=== PATIENT | female | born 1955 | race Caucasian/White ===

== ENCOUNTER 2016-08-22 09:11 | Inpatient (IN) | payer BC, OTHER ==
[~2016-08-22] VITALS: Ht 165.1 cm; Wt 58.2 kg
[2016-08-22] VITALS (18 sets, daily range): BP systolic 104–142; BP diastolic 61–84; PULSE 79–108; TEMP 36.6–36.7; O2SAT 85–100; Ht 165.1 cm; Wt 58.2 kg
[2016-08-22] MEDS ORDERED: SODIUM CHLORIDE 0.9% 1000ML 1,000 ML IV STA (09:32)
[2016-08-22] MEDS ORDERED: MULT-506 PO (09:41)
[2016-08-22] MEDS ORDERED: MULT-190 PO (09:41)
[2016-08-22] MEDS ORDERED: CALC-51 PO (09:41)
[2016-08-22] MEDS ORDERED: OCTREOTIDE IV BOLUS & DRIP IV STA (09:48)
--- NOTE | 2016-08-22 09:51 | EMERGENCY ROOM VISIT NOTE ---
History Report prepared by [place]: James Burns Under the Supervision of: Dr. Vinny Mendoza D.O. First contact with patient: 09:32 Chief Complaint: RECTAL BLEEDING Stated Complaint: GI BLEED Nursing Triage Summary: having 2 episodes in the past 72 hrs of vomiting dark red blood. now having dark stools x's 5. feeling dizzy and lightheaded. patient reports taking a multi vitamin History of Present Illness The patient is a 60 year old female who presents to the Emergency Room with complaints of persistent rectal bleeding beginning two days prior to arrival. She associates resolved lightheadedness and two episodes of hematemesis over the past three days with today's symptoms. The patient notes her stool is coffee ground with a foul odor, and she has had five episodes. She denies experiencing these symptoms in the past. The patient denies being on any medications. She notes that she takes 2 tablets of 200 mg ibuprofen every day to help her sleep. The patient states she has been a heavy drinker for the past 6-7 years. She notes that she has cut her alcohol intake from 4-5 cocktails a day to 6 ounces over the past week. The patient states it is her stress reliever and that she feels she can quit at any time. CAGE positive X 3. The patient denies chest pain. 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 Review of Systems See above for pertinent positives & negatives. A total of 10 systems reviewed and were otherwise negative. Past Medical & Surgical Medical Problems: (1) No pertinent past medical history Family History Heart disease Seizures Social History Smoking Status: Current Every Day Smoker Alcohol Use: heavy Marital Status: Current/Historical Medications Scheduled Calcium Carbonate-Vitamin D (Calcium), 1 TAB PO DAILY Multivitamin (Multivitamin), 1 TAB PO DAILY Ocuvite Preservision (Ocuvite Preservision), 1 TAB PO DAILY Allergies Coded Allergies: Phenytoin (Verified Allergy, Mild, GENERALIZED RASH, 08/22/16) Physical Exam Vital Signs Date Time Temp Pulse Resp B/P Pulse Ox O2 Delivery O2 Flow Rate FiO2 08/22/16 10:48 97 Room Air 08/22/16 10:03 107 18 124/72 97 Room Air 08/22/16 09:37 98 Room Air 08/22/16 09:34 95 08/22/16 09:18 36.4 111 18 120/84 98 Room Air Physical Exam GENERAL: Patient is tearful, well appearing and in no acute distress. HEENT: No acute trauma, normocephalic atraumatic, mucous membranes moist, no nasal congestion, no scleral icterus. NECK: No stridor, no adenopathy, no meningismus, trachea is midline. LUNGS: No dyspnea. Clear to auscultation and equal bilaterally. No wheeze, no rhonchi. HEART: Regular rate and rhythm. No murmurs, rubs, gallops appreciated. ABDOMEN: Soft, nontender, bowel sounds positive, no masses appreciated, no peritonitis. RECTAL: Grossly guaiac positive. Melanotic stool. BACK: No midline tenderness, no CVA tenderness EXTREMITIES: Normal motion all extremities, no cyanosis, no edema. NEUROLOGIC: Alert and oriented, no acute motor or sensory deficits, no focal weakness, cranial nerves grossly intact. SKIN: No rash, no jaundice, no diaphoresis. Medical Decision & Procedures Laboratory Results 08/22/16 09:51 Red Blood Count 3.35, Mean Corpuscular Volume 100.3, Mean Corpuscular Hemoglobin 36.1, Mean Corpuscular Hemoglobin Concent 36.0, Mean Platelet Volume 9.7, Neutrophils (%) (Auto) 76.5, Lymphocytes (%) (Auto) 14.1, Monocytes (%) ( Auto) 8.1, Eosinophils (%) (Auto) 0.4, Basophils (%) (Auto) 0.6, Neutrophils # ( Auto) 10.26, Lymphocytes # (Auto) 1.90, Monocytes # (Auto) 1.09, Eosinophils # ( Auto) 0.06, Basophils # (Auto) 0.08 08/22/16 09:51 Test 08/22/16 09:51 08/22/16 10:31 08/22/16 10:34 White Blood Count 13.43 K/uL (4.8-10.8) Red Blood Count 3.35 M/uL (4.2-5.4) Hemoglobin 12.1 g/dL (12.0-16.0) Hematocrit 33.6 % (37-47) Mean Corpuscular Volume 100.3 fL (80-100) Mean Corpuscular Hemoglobin 36.1 pg (25-34) Mean Corpuscular Hemoglobin Concent 36.0 g/dl (32-36) Platelet Count 342 K/uL (130-400) Mean Platelet Volume 9.7 fL (7.4-10.4) Neutrophils (%) (Auto) 76.5 % Lymphocytes (%) (Auto) 14.1 % Monocytes (%) (Auto) 8.1 % Eosinophils (%) (Auto) 0.4 % Basophils (%) (Auto) 0.6 % Neutrophils # (Auto) 10.26 K/uL (1.4-6.5) Lymphocytes # (Auto) 1.90 K/uL (1.2-3.4) Monocytes # (Auto) 1.09 K/uL (0.11-0.59) Eosinophils # (Auto) 0.06 K/uL (0-0.5) Basophils # (Auto) 0.08 K/uL (0-0.2) RDW Standard Deviation 48.5 fL (36.4-46.3) RDW Coefficient of Variation 13.3 % (11.5-14.5) Immature Granulocyte % (Auto) 0.3 % Immature Granulocyte # (Auto) 0.04 K/uL (0.00-0.02) Prothrombin Time 10.4 SECONDS (9.0-12.0) Prothromb Time International Ratio 1.0 (0.9-1.1) Activated Partial Thromboplast Time 22.1 SECONDS (21.0-31.0) Partial Thromboplastin Ratio 0.9 Anion Gap 10.0 mmol/L (3-11) Est Creatinine Clear Calc Drug Dose 72.7 ml/min Estimated GFR () 101.1 Estimated GFR (Non- 87.2 BUN/Creatinine Ratio 66.1 (10-20) Calcium Level 8.6 mg/dl (8.5-10.1) Total Bilirubin 1.2 mg/dl (0.2-1) Direct Bilirubin 0.3 mg/dl (0-0.2) Aspartate Amino Transf (AST/SGOT) 21 U/L (15-37) Alanine Aminotransferase (ALT/SGPT) 29 U/L (12-78) Alkaline Phosphatase 77 U/L (45-117) Total Protein 6.9 gm/dl (6.4-8.2) Albumin 3.6 gm/dl (3.4-5.0) Lipase 134 U/L (73-393) Creatine Kinase MB Ratio (0-3.0) Laboratory results as reviewed by me. Medications Administered Medications (Trade) Dose Ordered Sig/Miko Route Start Time Stop Time Status Last Admin Dose Admin Sodium Chloride (Nss 1000ml) 1,000 ml @ 999 mls/hr Q1H1M STAT IV 08/22/16 09:32 08/22/16 10:32 DC 08/22/16 09:32 999 MLS/HR Pantoprazole Sodium (Protonix IV Bolus/Drip) 1 ea NOW STAT IV 08/22/16 09:47 08/22/16 09:48 DC 08/22/16 09:47 1 EA Octreotide Acetate 1 ea 1 ea NOW STAT IV 08/22/16 09:48 08/22/16 09:49 DC 08/22/16 09:48 1 EA Pantoprazole Sodium 80 mg/ Dextrose 120 ml @ 480 mls/hr ONE ONCE IV 08/22/16 10:00 08/22/16 10:14 DC 08/22/16 10:12 480 MLS/HR Pantoprazole Sodium 40 mg/ Dextrose 100 ml @ 20 mls/hr Q5H IV 08/22/16 10:15 08/22/16 15:14 08/22/16 10:12 20 MLS/HR Octreotide Acetate 100 mcg/ Syringe 10 ml @ 3 mls/min NOW ONCE IV 08/22/16 10:00 08/22/16 10:03 DC 08/22/16 10:12 3 MLS/MIN Octreotide Acetate/Sodium Chloride (Sandostatin Inj/ Nss 100ml) 105 ml @ 10 mls/hr [id number] IV 08/22/16 10:00 08/22/16 20:29 08/22/16 10:12 10 MLS/HR Morphine Sulfate (MoRPHine SULFATE INJ) 4 mg NOW STAT IV 08/22/16 10:34 08/22/16 10:36 DC 08/22/16 11:09 4 MG ECG Indication: other (melena) Rate (beats per minute): 95 Rhythm: normal sinus Findings: other (Normal axis. Prolonged QTC 505. No ST segment abnormalities.) Comparison ECG Date: 07/27/2011 Change: Prolonged QTC interval change. ED Course 0931: The patient was evaluated in room A2. A complete history and physical exam was performed. 0932: Ordered Sodium Chloride 1,000 ml @ 999 mls/hr IV. 0947: Ordered Pantoprazole Sodium 1 ea IV. 0948: Ordered Octreotide Acetate 1 ea IV. 1000: Ordered Octreotide Acetate 500 mcg/Sodium Chloride 105 ml @ 10 mls/hr IV, Octreotide Acetate 100 mcg/Syringe 10 ml @ 3 mls/min IV, Pantoprazole Sodium 80 mg/Dextrose 120 ml @ 480 mls/hr IV. 1001: I discussed the case with Jeanie Garces (Gastroenterology), and he will scope the patient when she goes to the ICU. 1007: I discussed the case with HANY Moreno (Watch Parts Inspector) at this time. 1008: I discussed the case with HANY Souza (Internal Medicine) about the patient's case, and he will follow the patient for further evaluation. 1015: Ordered Erythromycin Lactobionate 250 mg/Sodium Chloride 255 ml @ 250 mls/ hr IV, Pantoprazole Sodium 40 mg/Dextrose 100 ml @ 20 mls/hr IV. 1034: Ordered Morphine Sulfate 4 mg IV. 1045: Ordered Acetaminophen 1,000 mg/Empty Bag 100 ml @ 400 mls/hr IV. Medical Decision The differential diagnoses include but are not limited to: Etiologies such as diverticulosis, AVM, coagulopathy, colitis, inflammatory bowel disease, malignancy, Viry-Barragan tear, esophagitis, peptic ulcer disease , variceal bleed, gastritis, epistaxis, fissure, hemorrhoids, as well as others were entertained. 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 Resident's today with a 3 day history of melanotic stools, she woke up this morning and was extremely short of breath while walking the dog. She denies any chest pain or palpitations with this. She is tearful in the exam room she admits to daily alcohol use of 4 -6 Damon Nakul drinks. She reports that she does not feel like she needs alcohol rehabilitation at this time a cage exam was performed and she's positive 3. He is aware that she is engaging in high-risk alcohol behavior including hiding her alcohol consumption from friends and family. She admits to daily ibuprofen use, Advil PM at night for sleep approximately 400 mg daily. I suspect that this is most likely a peptic ulcer, she admits to hematemesis 2 and several voluminous melanotic stools. I have started a Protonix infusion as well as an octreotide infusion as with this alcohol history I cannot exclude esophageal varices, however she does not have any stigmata of varices on her abdominal exam. I have paged GI to discuss the case with him. Erythromycin for GI motility held due to QTC prolongation. Consults Time Called: 09 Consulting Physician: Jeanie Garces (Gastroenterology) Returned Call: 1000 I discussed the case with Jeanie Garces (Gastroenterology), and he will scope the patient when she goes to the ICU. Additional Consults: Time Called: 1003 Consulted Physician: HANY Moreno (Watch Parts Inspector) Returned Call: 1007 Additional Comments: I discussed the case with HANY Moreno (Watch Parts Inspector) at this time. Time Called: 1004 Consulted Physician: HANY Souza (Internal Medicine) Returned Call: 1008 Additional Comments: I discussed the case with HANY Souza (Internal Medicine) about the patient's case, and he will follow the patient for further evaluation. Impression Primary Impression: GI (gastrointestinal hemorrhage) Additional Impressions: Daily consumption of alcohol Melanotic stools Megaloblastic anemia due to alcoholism Hypokalemia Total bilirubin, elevated Prolonged QT interval Critical Care I have personally spent 35 minutes of critical care time in the direct management of this patient. This is a life/limb threatening event. This includes time spent evaluating patient, direct bedside care, chart review, placing orders, interpretation of diagnostic studies, discussion with consultants, patient, and family members, as well as other required patient management activities. This time is exclusive of all separately billable procedures, and teaching time and separate from and in addition to any other critical care service time. Patient is critically ill due to acute gastrointestinal hemorrhage. Scribe Attestation The scribe's documentation has been prepared under my direction and personally reviewed by me in its entirety. I confirm that the note above accurately reflects all work, treatment, procedures, and medical decision making performed by me. Departure Information Dispostion Being Evaluated By Hospitalist (Dr. Dyer, [facility] (Internal Medicine)) Referrals No Doctor, Assigned (PCP) Problem Qualifiers Primary Impression: GI (gastrointestinal hemorrhage) GI bleed type/associated pathology: gastrointestinal hemorrhage with hematemesis Qualified Codes: K92.0 - Hematemesis
[2016-08-22] MEDS ORDERED: OCTREOTIDE ACETATE INJ 500 MCG in NSS 100ML IV SCH (10:00)
[2016-08-22] MEDS ORDERED: PANTOprazole INJ 80 MG in DEXTROSE 5% 100ML IV ONE (10:00)
[2016-08-22] MEDS ORDERED: OCTREOTIDE ACETATE INJ 100 MCG in SYRINGE 9 ML IV ONE (10:00)
[2016-08-22 10:09] LABS: BASO % 0.6 %; BASO ABS # 0.08 K/uL (0-0.2); COMPLETE YES; EOS % 0.4 %; HEMATOCRIT 33.6 % (37-47); IG% 0.3 %; LYMPH % 14.1 %; MEAN CELL VOLUME 100.3 fL (80-100); MEAN CORPUSCULAR HEMOGLOBIN 36.1 pg (25-34); MEAN PLATELET VOLUME 9.7 fL (7.4-10.4); MONO % 8.1 %; NEUT % 76.5 %; PLATELET COUNT 342 K/uL (130-400); RED BLOOD COUNT 3.35 M/uL (4.2-5.4); WHITE BLOOD COUNT 13.43 K/uL (4.8-10.8)
[2016-08-22] MEDS ORDERED: ERYTHROMYCIN IV 250 MG in SODIUM CHLORIDE 0.9% 250ML 250 ML IV SCH (10:15)
[2016-08-22] MEDS ORDERED: PANTOprazole INJ 40 MG in DEXTROSE 5% 100ML IV SCH (10:15)
[2016-08-22 10:17] LABS: PARTIAL THROMBOPLASTIN RATIO 0.9; PROTHROMBIN TIME (PATIENT) 10.4 SECONDS (9.0-12.0)
[2016-08-22 10:24] LABS: CALCIUM 8.6 mg/dl (8.5-10.1)
[2016-08-22 10:27] LABS: BUN/CREATININE RATIO 66.1 (10-20); CREATININE 0.75 mg/dl (0.60-1.20); POTASSIUM 3.3 mmol/L (3.5-5.1)
[2016-08-22] MEDS ORDERED: MoRPHine SULFATE 4 MG/ML 1 ML CARP\\VIAL IV STA (10:34)
[2016-08-22] MEDS ORDERED: LORAZEPAM 2 MG/ML 1 ML VIAL IV PRN (10:45)
[2016-08-22] MEDS ORDERED: ACETAMINOPHEN IV 1,000 MG in EMPTY BAG 0 ML IV ONE (10:45)
[2016-08-22] MEDS ORDERED: POLYETHYLENE (MIRALAX) 17 GM PACK PO PRN (10:45)
[2016-08-22] MEDS ORDERED: ACETAMINOPHEN 325 MG TAB PO PRN (10:45)
[2016-08-22] MEDS ORDERED: ONDANSETRON INJ 2 MG/ML 2 ML VIAL IV PRN ×2 (10:45→14:00)
[2016-08-22] MEDS ORDERED: NITROGLYCERIN 0.4 MG SL PER TAB CHARGE SL PRN (10:45)
[2016-08-22] MEDS ORDERED: MAGNESIUM HYDROXIDE SUSP 30 ML UDC PO PRN (10:45)
[2016-08-22] MEDS ORDERED: ALUMINUM/MAGNESIUM/SIMETH (MAALOX MAX) 30 ML UDC PO PRN (10:45)
--- NOTE | 2016-08-22 11:14 | History and Physical ---
History & Physical Date & Time of Service: Aug 22, 2016 at 10:59 Chief Complaint: Gi Bleed Primary Care Physician: No Doctor, Assigned History of Present Illness Source: patient, family, clinic records, hospital records Patient is a pleasant 60 y/o female, with PMHx of alcohol abuse, who presented to the ED because of dark stools, lightheadedness/dizziness x3 days. According to the patient, she started to notice dark stools approximately 3 days ago. She admits to about 5 darks stools in that time frame. She denies any obvious bright red blood. However, according to father present, patient did have noticeable bleeding on her bedroom sheets. This AM she went to let her dog out and became very dizzy/lightheaded, so she called 911. Patient admits to excessive alcohol use for the past 7 years. She admits to daily NSAID use. She admits to daily tobacco use. She denies having anything like this in the past. + hematemesis. Currently, patient states she is feeling well. Patient denies any fever, chills, sweats, vision changes, CP, palpitations, edema, SOB, wheezing, cough, abdominal pain, nausea, diarrhea, urinary symptoms, numbness/tingling, weakness, muscle/joint pain, anxiety/depression, obvious active bleeding, or new skin discoloration/changes. Past Medical/Surgical History Alcohol abuse Tobacco abuse Family History Heart disease Seizures Social History Smoking Status: Current Every Day Smoker Marital Status: Housing status: lives with family Multi-Drug Resistant Organisms History of MDRO: No Allergies Coded Allergies: Phenytoin (Verified Allergy, Mild, GENERALIZED RASH, 08/22/16) Home Medications Scheduled Calcium Carbonate-Vitamin D (Calcium), 1 TAB PO DAILY Multivitamin (Multivitamin), 1 TAB PO DAILY Ocuvite Preservision (Ocuvite Preservision), 1 TAB PO DAILY Physical Exam Vital Signs Date Time Temp Pulse Resp B/P Pulse Ox O2 Delivery O2 Flow Rate FiO2 08/22/16 10:03 107 18 124/72 97 Room Air 08/22/16 09:37 98 Room Air 08/22/16 09:34 95 08/22/16 09:18 36.4 111 18 120/84 98 Room Air General Appearance: no apparent distress Head: normocephalic, atraumatic Eyes: normal inspection, PERRL ENT: hearing grossly normal Neck: supple Respiratory/Chest: lungs clear, no respiratory distress, no accessory muscle use Cardiovascular: regular rate, rhythm Abdomen/GI: normal bowel sounds, non tender, soft Back: no CVA tenderness Extremities/Musculoskelatal: no calf tenderness, no pedal edema Neurologic/Psych: alert, normal mood/affect, oriented x 3 Skin: normal color, warm/dry, no rash Diagnostics Laboratory Results Results Past 24 Hours Test 08/22/16 09:51 08/22/16 10:31 08/22/16 10:34 Range/Units White Blood Count 13.43 4.8-10.8 K/uL Red Blood Count 3.35 4.2-5.4 M/uL Hemoglobin 12.1 12.0-16.0 g/dL Hematocrit 33.6 37-47 % Mean Corpuscular Volume 100.3 80-100 fL Mean Corpuscular Hemoglobin 36.1 25-34 pg Mean Corpuscular Hemoglobin Concent 36.0 32-36 g/dl Platelet Count 342 130-400 K/uL Mean Platelet Volume 9.7 7.4-10.4 fL Neutrophils (%) (Auto) 76.5 % Lymphocytes (%) (Auto) 14.1 % Monocytes (%) (Auto) 8.1 % Eosinophils (%) (Auto) 0.4 % Basophils (%) (Auto) 0.6 % Neutrophils # (Auto) 10.26 1.4-6.5 K/uL Lymphocytes # (Auto) 1.90 1.2-3.4 K/uL Monocytes # (Auto) 1.09 0.11-0.59 K/uL Eosinophils # (Auto) 0.06 0-0.5 K/uL Basophils # (Auto) 0.08 0-0.2 K/uL RDW Standard Deviation 48.5 36.4-46.3 fL RDW Coefficient of Variation 13.3 11.5-14.5 % Immature Granulocyte % (Auto) 0.3 % Immature Granulocyte # (Auto) 0.04 0.00-0.02 K/uL Prothrombin Time 10.4 9.0-12.0 SECONDS Prothromb Time International Ratio 1.0 0.9-1.1 Activated Partial Thromboplast Time 22.1 21.0-31.0 SECONDS Partial Thromboplastin Ratio 0.9 Sodium Level 137 136-145 mmol/L Potassium Level 3.3 3.5-5.1 mmol/L Chloride Level 102 98-107 mmol/L Carbon Dioxide Level 25 21-32 mmol/L Anion Gap 10.0 3-11 mmol/L Blood Urea Nitrogen 50 7-18 mg/dl Creatinine 0.75 0.60-1.20 mg/dl Est Creatinine Clear Calc Drug Dose 72.7 ml/min Estimated GFR () 101.1 Estimated GFR (Non- 87.2 BUN/Creatinine Ratio 66.1 10-20 Random Glucose 93 70-99 mg/dl Calcium Level 8.6 8.5-10.1 mg/dl Total Bilirubin 1.2 0.2-1 mg/dl Direct Bilirubin 0.3 0-0.2 mg/dl Aspartate Amino Transf (AST/SGOT) 21 15-37 U/L Alanine Aminotransferase (ALT/SGPT) 29 12-78 U/L Alkaline Phosphatase 77 45-117 U/L Total Protein 6.9 6.4-8.2 gm/dl Albumin 3.6 3.4-5.0 gm/dl Lipase 134 73-393 U/L Creatine Kinase MB Ratio 0-3.0 EKG DANIS MELENDEZ ID:[id number] 22-AUG-2016 09:13:46 [facility] Normal sinus rhythm Minimal voltage criteria for LVH, may be normal variant Inferior infarct , age undetermined Prolonged QT Abnormal ECG When compared with ECG of 27-JUL-2011 10:50, Inferior infarct is now Present QT has lengthened 25mm/s 10mm/mV 150Hz 8.0 SP2 12SL 241 SURYA: 0 Referred by: ED Unconfirmed Vent. rate 95 BPM OK interval 144 ms QRS duration 66 ms QT/QTc 402/505 ms P-R-T axes 89 -16 75 1955 (60 yr) Female Room:A02 Loc:15 [employer]ilities And Grounds Director:MANAN Vann ind: Impression Assessment and Plan PA Physician Supervision Note: I interviewed and examined the patient. Discussed with Jessica RIZVI and agree with findings and plan as documented in the note. Any exceptions or clarifications are listed here: None Gi bleed, emergent scope no defined source for bleeding, continue close watch, gi medicine is following Alcohol abuse, watch for withdrawal, B12 folate and MVI Tobacco use: counselled for cessation Denies need for nicotine patch replete hypokalemia vitals stable, no signs of withdrawal at this time abd is soft and non tender Documented By: Leonel Dyer Level of Care Critical Care Resuscitation Status FULL RESUSCITATION VTE Prophylaxis VTE Risk Assessment Done? Y/N: Yes Risk Level: Low Given or contraindicated: T.E.D. Stockings, SCD's
[2016-08-22 11:56] LABS: MAGNESIUM 1.7 mg/dl (1.8-2.4); PHOSPHORUS 2.7 mg/dl (2.5-4.9)
--- NOTE | 2016-08-22 12:23 | Medical Consult ---
Consultation Note Date of Service Aug 22, 2016. Consultation Note Reason for consult: GIB History of Present Illness Source: patient 60 yo female with PMH sig alcohol abuse in [place] until Wed evening when she noticed some mild upper abd pain, followed by vomiting of black material. Over the next two days, she began to pass dark stools without red blood. She also had poor appetite, and progressive fatigue and weakness with minimal exertion. She had second episode of vomiting dark material last night. She presented to the ER this morning after pre-syncopal episode this morning. Denies anginal symptoms. No prior h/o GIB. + H/o heavy alcohol and tobacco. + Regular NSAID use - 2-3 tabs ibuprofen daily. On presentation to ER, she was tachycardic but normotensive, with Hgb 12 and BUN 50. She remained tachycardic after 1 liter NS. Past Medical/Surgical History Alcohol abuse Tobacco abuse Family History Heart disease Seizures Social History Smoking Status: Current Every Day Smoker Marital Status: Housing status: lives with family Multi-Drug Resistant Organisms History of MDRO: No Allergies Coded Allergies: Phenytoin (Verified Allergy, Mild, GENERALIZED RASH, 08/22/16) Home Medications Scheduled Calcium Carbonate-Vitamin D (Calcium), 1 TAB PO DAILY Multivitamin (Multivitamin), 1 TAB PO DAILY Ocuvite Preservision (Ocuvite Preservision), 1 TAB PO DAILY Physical Exam Vital Signs Date Time Temp Pulse Resp B/P Pulse Ox O2 Delivery O2 Flow Rate FiO2 08/22/16 11:13 103 18 117/73 99 Room Air 08/22/16 10:48 97 Room Air 08/22/16 10:03 107 18 124/72 97 Room Air 08/22/16 09:37 98 Room Air 08/22/16 09:34 95 08/22/16 09:18 36.4 111 18 120/84 98 Room Air General Appearance: no apparent distress Head: normocephalic, atraumatic Eyes: normal inspection, PERRL. Mucosa moist and pink ENT: hearing grossly normal Neck: supple Respiratory/Chest: lungs clear, no respiratory distress, no accessory muscle use Cardiovascular: regular rate, rhythm Abdomen/GI: normal bowel sounds, non tender, soft Back: no CVA tenderness Extremities/Musculoskelatal: no calf tenderness, no pedal edema Neurologic/Psych: alert, normal mood/affect, oriented x 3 Skin: normal color, warm/dry, no rash Rectal: Black stool Diagnostics Laboratory Results Results Past 24 Hours Test 08/22/16 09:51 08/22/16 10:31 08/22/16 10:34 Range/Units White Blood Count 13.43 4.8-10.8 K/uL Red Blood Count 3.35 4.2-5.4 M/uL Hemoglobin 12.1 12.0-16.0 g/dL Hematocrit 33.6 37-47 % Mean Corpuscular Volume 100.3 80-100 fL Mean Corpuscular Hemoglobin 36.1 25-34 pg Mean Corpuscular Hemoglobin Concent 36.0 32-36 g/dl Platelet Count 342 130-400 K/uL Mean Platelet Volume 9.7 7.4-10.4 fL Neutrophils (%) (Auto) 76.5 % Lymphocytes (%) (Auto) 14.1 % Monocytes (%) (Auto) 8.1 % Eosinophils (%) (Auto) 0.4 % Basophils (%) (Auto) 0.6 % Neutrophils # (Auto) 10.26 1.4-6.5 K/uL Lymphocytes # (Auto) 1.90 1.2-3.4 K/uL Monocytes # (Auto) 1.09 0.11-0.59 K/uL Eosinophils # (Auto) 0.06 0-0.5 K/uL Basophils # (Auto) 0.08 0-0.2 K/uL RDW Standard Deviation 48.5 36.4-46.3 fL RDW Coefficient of Variation 13.3 11.5-14.5 % Immature Granulocyte % (Auto) 0.3 % Immature Granulocyte # (Auto) 0.04 0.00-0.02 K/uL Prothrombin Time 10.4 9.0-12.0 SECONDS Prothromb Time International Ratio 1.0 0.9-1.1 Activated Partial Thromboplast Time 22.1 21.0-31.0 SECONDS Partial Thromboplastin Ratio 0.9 Sodium Level 137 136-145 mmol/L Potassium Level 3.3 3.5-5.1 mmol/L Chloride Level 102 98-107 mmol/L Carbon Dioxide Level 25 21-32 mmol/L Anion Gap 10.0 3-11 mmol/L Blood Urea Nitrogen 50 7-18 mg/dl Creatinine 0.75 0.60-1.20 mg/dl Est Creatinine Clear Calc Drug Dose 72.7 ml/min Estimated GFR () 101.1 Estimated GFR (Non- 87.2 BUN/Creatinine Ratio 66.1 10-20 Random Glucose 93 70-99 mg/dl Calcium Level 8.6 8.5-10.1 mg/dl Total Bilirubin 1.2 0.2-1 mg/dl Direct Bilirubin 0.3 0-0.2 mg/dl Aspartate Amino Transf (AST/SGOT) 21 15-37 U/L Alanine Aminotransferase (ALT/SGPT) 29 12-78 U/L Alkaline Phosphatase 77 45-117 U/L Total Protein 6.9 6.4-8.2 gm/dl Albumin 3.6 3.4-5.0 gm/dl Lipase 134 73-393 U/L Creatine Kinase MB Ratio 0-3.0 EKG DANIS MELENDEZ ID:[id number] 22-AUG-2016 09:13:46 [facility] Normal sinus rhythm Minimal voltage criteria for LVH, may be normal variant Inferior infarct , age undetermined Prolonged QT Abnormal ECG When compared with ECG of 27-JUL-2011 10:50, Inferior infarct is now Present QT has lengthened 25mm/s 10mm/mV 150Hz 8.0 SP2 12SL 241 SURYA: 0 Referred by: ED Unconfirmed Vent. rate 95 BPM LA interval 144 ms QRS duration 66 ms QT/QTc 402/505 ms P-R-T axes 89 -16 75 1955 (60 yr) Female Room:2 Loc:15 Keyboard Instrument Tuner:MANAN Vann ind: Impression Assessment and Plan NSAID use, alcohol UGIB - Suspect PUD. Doubt variceal bleed. - Volume resuscitation, urgent endoscopy today.
[2016-08-22] MEDS ORDERED: MULTI-VITAMIN INFUSION INJ 10 ML, THIAMINE HCL INJ 100 MG, FoLIC ACID INJ 1 MG in SODIU... IV ONE (12:30)
--- NOTE | 2016-08-22 13:26 | GI REPORT ---
Procedure Date: 08/22/2016 12:47 PM Procedure: Upper GI endoscopy Indications: Hematemesis, Melena Medicines: See the Anesthesia note for documentation of the administered medications Complications: No immediate complications. Estimated Blood Loss: Estimated blood loss: none. Procedure: Pre-Anesthesia Assessment: - After reviewing the risks and benefits, the patient was deemed in satisfactory condition to undergo the procedure. - ASA Grade Assessment: III - A patient with severe systemic disease. After obtaining informed consent, the endoscope was passed under direct vision. Throughout the procedure, the patient's blood pressure, pulse, and oxygen saturations were monitored continuously. The Scope was introduced through the mouth, and advanced to the proximal jejunum. The upper GI endoscopy was accomplished without difficulty. The patient tolerated the procedure well. Findings: The examined esophagus was normal. There was scant red blood in the stomach on intubation of the stomach which easily cleared with lavage. The examined duodenum was normal. The examined jejunum was normal. No source of bleeding was identified despite repeated inspection of upper GI tract. Impression: - Scant amount of red blood in stomach, although no source of bleeding identfied. Recommendation: - Discharge pt to ICU. Clear liquids. Despite unremarkable endoscopy, would continue PPI gtt. If pt has evidence of repeat bleeding, would repeat EGD. Gina Foster M.D. Gina Foster MD 08/22/2016 1:25:15 PM This report has been signed electronically. Note Initiated On: 08/22/2016 12:47 PM I attest to the content of the Intraoperative Record and orders documented therein, exceptions below
--- NOTE | 2016-08-22 13:49 | Anesthesiology Progress Note ---
Anesthesia Post Op Note Date & Time Aug 22, 2016 at 13:48 Vital Signs Pain Intensity: 0 Vital Signs Past 12 Hours Date Time Temp Pulse Resp B/P Pulse Ox O2 Delivery O2 Flow Rate FiO2 08/22/16 13:45 80 18 106/73 97 Nasal Cannula 2 08/22/16 13:35 84 18 105/72 100 Nasal Cannula 2 08/22/16 13:29 36.6 86 16 104/67 100 Nasal Cannula 2 08/22/16 12:01 104 17 129/73 100 Room Air 08/22/16 11:57 36.6 108 17 124/79 100 Room Air 08/22/16 11:13 103 18 117/73 99 Room Air 08/22/16 10:48 97 Room Air 08/22/16 10:03 107 18 124/72 97 Room Air 08/22/16 09:37 98 Room Air 08/22/16 09:34 95 08/22/16 09:18 36.4 111 18 120/84 98 Room Air Notes Mental Status: alert / awake / arousable, participated in evaluation Pt Amnestic to Procedure: Yes Nausea / Vomiting: adequately controlled Pain: adequately controlled Airway Patency, RR, SpO2: stable & adequate BP & HR: stable & adequate Hydration State: stable & adequate Anesthetic Complications: no major complications apparent
[2016-08-22] MEDS ORDERED: EpHEDrine SULFATE INJ 50 MG/ML AMP IV PRN (14:00)
[2016-08-22] MEDS ORDERED: ATROPINE SULFATE 0.1 MG/ML 5ML SYR IV PRN (14:00)
[2016-08-22] MEDS: POTASSIUM CHLR 10 MEQ / WTR 10 MEQ in PREMIXED WATER 100 ML IV SCH ×4 (15:23→18:41)
[2016-08-22] MEDS: MAGNESIUM SULFATE 1GM / D5W 1 GM in PREMIXED IN D5W 100 ML IV SCH ×2 (15:24→16:51)
[2016-08-22] MEDS ORDERED: MAGNESIUM SULFATE 1GM / D5W 1 GM in PREMIXED IN D5W 100 ML IV ONE (16:15)
[2016-08-22 16:22] LABS: HEMATOCRIT 28.5 % (37-47)
[2016-08-22] MEDS: PANTOprazole INJ 40 MG in DEXTROSE 5% 100ML IV SCH ×2 (16:51→22:42)
[2016-08-22] MEDS: NSS + 20MEQ KCL 1000ML 1,000 ML IV SCH (18:03)
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
[2016-08-22 22:12] LABS: HEMATOCRIT 25.7 % (37-47)
[2016-08-22] MEDS: LORAZEPAM 2 MG/ML 1 ML VIAL IV PRN (23:04)
[2016-08-23] VITALS (10 sets, daily range): BP systolic 106–143; BP diastolic 45–81; PULSE 70–93; TEMP 36.5–36.8; O2SAT 96–99
[2016-08-23] MEDS: PANTOprazole INJ 40 MG in DEXTROSE 5% 100ML IV SCH ×4 (02:48→19:30)
[2016-08-23] MEDS: NSS + 20MEQ KCL 1000ML 1,000 ML IV SCH (02:49)
[2016-08-23 05:59] LABS: HEMATOCRIT 23.9 % (37-47); MEAN CELL VOLUME 102.1 fL (80-100); MEAN CORPUSCULAR HEMOGLOBIN 35.9 pg (25-34); MEAN CORPUSCULAR HGB CONC 35.1 g/dl (32-36); MEAN PLATELET VOLUME 9.7 fL (7.4-10.4); PLATELET COUNT 245 K/uL (130-400); RED BLOOD COUNT 2.34 M/uL (4.2-5.4); WHITE BLOOD COUNT 8.82 K/uL (4.8-10.8)
[2016-08-23 06:23] LABS: ALB/GLOB RATIO 1.2 (0.9-2); BUN/CREATININE RATIO 33.9 (10-20); CREATININE 0.6 mg/dl (0.60-1.20); PHOSPHORUS 2.2 mg/dl (2.5-4.9); POTASSIUM 4.2 mmol/L (3.5-5.1)
[2016-08-23] MEDS ORDERED: SODIUM PHOSPHATE 3 MMOL/1 ML INFUSION IV STA (07:29)
[2016-08-23] MEDS ORDERED: SODIUM PHOSPHATE INJ 15 MMOL in SODIUM CHLORIDE 0.9% 250ML 250 ML IV ONE (08:00)
[2016-08-23] MEDS: CEROVITE ADV FORMULA TAB PO SCH (08:10)
[2016-08-23] MEDS: SODIUM CHLORIDE 0.45% 1000ML 1,000 ML IV SCH ×2 (08:11→19:31)
[2016-08-23] MEDS: THIAMINE HCL 100 MG TAB PO SCH (08:11)
[2016-08-23 11:29] LABS: HEMATOCRIT 26.2 % (37-47)
--- NOTE | 2016-08-23 11:41 | CRITICAL CARE PROGRESS NOTE ---
DATE: 08/23/2016 SUBJECTIVE: The patient has no complaints today. She is passing some mark stools today. She had 3 moderate sized bowel movements from midnight to 7 and 1 small bowel movement. Today, she has had 1 small bowel movement as well. She denies chest pain, shortness of breath and is taking ralph sonido without any problems. PHYSICAL EXAMINATION: VITAL SIGNS: Maximum temperature 36.8, heart rate 70s-80s, respiratory rate 12-25, blood pressure 108-128/40s-70s, and oxygen saturation 97% on room air. 24-hour fluid balance is positive 3.5 liters. GENERAL: She is awake and alert and in no distress. LUNGS: Clear to auscultation bilaterally. No rales, rhonchi or wheezes. HEART: Regular rate and rhythm. ABDOMEN: Soft, nondistended, and nontender. EXTREMITIES: Warm. No edema. NEUROLOGIC: She is able to move about the bed without any problems and is spending a lot of time texting while in the room. LABORATORY DATA: White blood cell count 8.82, hemoglobin 8.4, hematocrit 23.9, and platelets 245. Sodium 140, potassium 4.2, chloride 109, CO2 of 25, BUN 20, creatinine 0.6, calcium 8, and phosphorus 2.2. Total protein 5.2 and albumin 2.8. LFTs within normal limits. Troponin less than 0.015. MEDICATIONS: Acetaminophen, Maalox, Benadryl, folic acid, Ativan p.r.n., milk of magnesia, multivitamin, Nitrostat, Zofran, Protonix, MiraLax, normal saline 100 mL per hour, and thiamine. IMPRESSION: 1. Acute gastrointestinal bleed, status post upper endoscopy without determination of etiology. 2. Acute anemia of blood loss. 3. Alcohol abuse and at risk for alcohol withdrawal. 4. Leukocytosis, improved. 5. Macrocytosis, B12 and folate are within normal limits. 6. Mildly elevated total bilirubin, resolved. 7. Prolonged QT interval. I see the EKG that ordered yesterday has been canceled. I will reorder it. 8. History of seizures. 9. History of tobacco use. PLAN: NEUROLOGIC: Continue to watch for signs and symptoms of alcohol withdrawal. Treat with as needed Ativan. PULMONARY: Encouraged smoking cessation. CARDIOVASCULAR: Tachycardia has resolved. Continue IV fluids. HEMATOLOGY: Continue serial blood counts and transfuse as needed. SCDs for DVT prophylaxis. RENAL: Assess volume status and replete phosphorus. GASTROINTESTINAL: Dr. Foster has ordered a bleeding scan. Continue clear liquid diet as well as multivitamin, thiamine and folate. Please call me with any questions or concerns. MTDD
--- NOTE | 2016-08-23 12:03 | Progress Note ---
Subjective Date of Service: Aug 23, 2016. Subjective pt has no complaints but looks shakey, feels bloody stool output is decreasing, no abd pain for bleeding scan 08/23 Problem List Medical Problems: (1) Daily consumption of alcohol Status: Acute (2) GI (gastrointestinal hemorrhage) Status: Acute (3) Hypokalemia Status: Acute (4) Megaloblastic anemia due to alcoholism Status: Acute (5) Melanotic stools Status: Acute (6) Prolonged QT interval Status: Acute (7) Total bilirubin, elevated Status: Acute Review of Systems Constitutional: + weakness, No chills, No fever Respiratory: No cough, No shortness of breath Cardiac: No chest pain, No edema Abdomen: + GI bleeding, No nausea, No pain Female : No dysuria, No urinary frequency Psychiatric: + anxiety, + depression symptoms Objective Vital Signs Date Time Temp Pulse Resp B/P Pulse Ox O2 Delivery O2 Flow Rate FiO2 08/23/16 06:00 36.7 80 12 125/81 97 Room Air 08/23/16 04:00 36.8 70 14 106/45 97 08/23/16 04:00 Room Air 08/23/16 02:00 75 14 111/54 99 Room Air 08/23/16 00:00 36.6 81 14 108/72 96 Room Air 08/23/16 00:00 Room Air 08/22/16 22:00 79 15 128/72 96 Room Air 08/22/16 21:00 84 16 131/71 96 Room Air 08/22/16 20:00 36.6 80 24 111/63 95 Room Air 08/22/16 20:00 Room Air 08/22/16 19:00 85 17 132/84 95 Room Air 08/22/16 18:00 84 15 136/81 96 Room Air 08/22/16 17:58 89 17 142/83 99 08/22/16 16:02 99 Room Air 08/22/16 15:53 36.7 84 15 127/61 100 Room Air 08/22/16 15:00 86 25 120/84 100 Room Air 08/22/16 14:00 36.6 82 18 106/68 85 Room Air 08/22/16 13:50 86 18 111/66 100 Room Air 08/22/16 13:45 36.4 80 18 106/73 97 Nasal Cannula 2 08/22/16 13:45 88 19 106/73 100 Room Air 08/22/16 13:40 85 18 121/61 100 Room Air 08/22/16 13:37 36.6 93 18 105/72 97 Room Air 08/22/16 13:35 84 18 105/72 100 Nasal Cannula 2 08/22/16 13:30 89 15 104/67 99 Room Air 08/22/16 13:29 36.6 86 16 104/67 100 Nasal Cannula 2 08/22/16 12:01 104 17 129/73 100 Room Air 08/22/16 11:57 36.6 108 17 124/79 100 Room Air 08/22/16 11:13 103 18 117/73 99 Room Air 08/22/16 10:48 97 Room Air 08/22/16 10:03 107 18 124/72 97 Room Air 08/22/16 09:37 98 Room Air 08/22/16 09:34 95 08/22/16 09:18 36.4 111 18 120/84 98 Room Air Physical Exam General Appearance: WD/WN, + mild distress Eyes: PERRL, EOMI Neck: supple, no JVD Respiratory/Chest: chest non-tender, lungs clear, normal breath sounds Cardiovascular: regular rate, rhythm, no murmur Abdomen: normal bowel sounds, non tender, soft Laboratory Results Last 24 Hours Test 08/22/16 09:51 08/22/16 10:31 08/22/16 11:02 08/22/16 16:12 White Blood Count 13.43 K/uL Red Blood Count 3.35 M/uL Hemoglobin 12.1 g/dL 9.9 g/dL Hematocrit 33.6 % 28.5 % Mean Corpuscular Volume 100.3 fL Mean Corpuscular Hemoglobin 36.1 pg Mean Corpuscular Hemoglobin Concent 36.0 g/dl Platelet Count 342 K/uL Mean Platelet Volume 9.7 fL Neutrophils (%) (Auto) 76.5 % Lymphocytes (%) (Auto) 14.1 % Monocytes (%) (Auto) 8.1 % Eosinophils (%) (Auto) 0.4 % Basophils (%) (Auto) 0.6 % Neutrophils # (Auto) 10.26 K/uL Lymphocytes # (Auto) 1.90 K/uL Monocytes # (Auto) 1.09 K/uL Eosinophils # (Auto) 0.06 K/uL Basophils # (Auto) 0.08 K/uL RDW Standard Deviation 48.5 fL RDW Coefficient of Variation 13.3 % Immature Granulocyte % (Auto) 0.3 % Immature Granulocyte # (Auto) 0.04 K/uL Prothrombin Time 10.4 SECONDS Prothromb Time International Ratio 1.0 Activated Partial Thromboplast Time 22.1 SECONDS Partial Thromboplastin Ratio 0.9 Sodium Level 137 mmol/L Potassium Level 3.3 mmol/L Chloride Level 102 mmol/L Carbon Dioxide Level 25 mmol/L Anion Gap 10.0 mmol/L Blood Urea Nitrogen 50 mg/dl Creatinine 0.75 mg/dl Est Creatinine Clear Calc Drug Dose 72.7 ml/min Estimated GFR () 101.1 Estimated GFR (Non- 87.2 BUN/Creatinine Ratio 66.1 Random Glucose 93 mg/dl Calcium Level 8.6 mg/dl Phosphorus Level 2.7 mg/dl Magnesium Level 1.7 mg/dl Total Bilirubin 1.2 mg/dl Direct Bilirubin 0.3 mg/dl Aspartate Amino Transf (AST/SGOT) 21 U/L Alanine Aminotransferase (ALT/SGPT) 29 U/L Alkaline Phosphatase 77 U/L Total Protein 6.9 gm/dl Albumin 3.6 gm/dl Lipase 134 U/L Creatine Kinase MB Ratio Ethyl Alcohol mg/dL < 3.0 mg/dl Troponin I < 0.015 ng/ml Vitamin B12 Level 376 pg/mL Folate > 24.00 ng/mL Test 08/22/16 21:57 08/22/16 21:59 08/23/16 05:09 Bedside Glucose 95 mg/dl Hemoglobin 8.9 g/dL 8.4 g/dL Hematocrit 25.7 % 23.9 % Troponin I < 0.015 ng/ml White Blood Count 8.82 K/uL Red Blood Count 2.34 M/uL Mean Corpuscular Volume 102.1 fL Mean Corpuscular Hemoglobin 35.9 pg Mean Corpuscular Hemoglobin Concent 35.1 g/dl RDW Standard Deviation 50.2 fL RDW Coefficient of Variation 13.6 % Platelet Count 245 K/uL Mean Platelet Volume 9.7 fL Sodium Level 140 mmol/L Potassium Level 4.2 mmol/L Chloride Level 109 mmol/L Carbon Dioxide Level 25 mmol/L Anion Gap 6.0 mmol/L Blood Urea Nitrogen 20 mg/dl Creatinine 0.60 mg/dl Est Creatinine Clear Calc Drug Dose 90.8 ml/min Estimated GFR () 115.6 Estimated GFR (Non- 99.8 BUN/Creatinine Ratio 33.9 Random Glucose 85 mg/dl Calcium Level 8.0 mg/dl Phosphorus Level 2.2 mg/dl Magnesium Level 2.0 mg/dl Total Bilirubin 1.0 mg/dl Aspartate Amino Transf (AST/SGOT) 27 U/L Alanine Aminotransferase (ALT/SGPT) 21 U/L Alkaline Phosphatase 54 U/L Total Protein 5.2 gm/dl Albumin 2.8 gm/dl Globulin 2.4 gm/dl Albumin/Globulin Ratio 1.2 Assessment and Plan 60 F with acute blood loss anemia, with emergent endoscopy without upper gi source but blood in stomach, did drop hgb 4 gms overnight, Gi medicine has continued ppi, scheduled bleeding scan GI bleed, continue to monitor h/h, transfuse as needed, continue ppi, most recent hgb stable alcohol abuse, concerns for withdrawal, ativan, vitamins, Cessation counselling offered and refused Documented By: Leonel Dyer
--- NOTE | 2016-08-23 13:53 | Progress Note ---
Progress Note Date of Service Aug 23, 2016. Progress Note Pt continues to have santa stools overnight. VSS afeb Pt appears comfortable, NAD Abd: soft, NT, ND Labs reviewed A/P: Obscure obvert UGIB - Bleeding scan, EGD, PPI gtt - Transfuse for goal hgb 8
--- NOTE | 2016-08-23 15:56 | DIAGNOSTIC IMAGING REPORT ---
GI BLEEDING SCAN HISTORY: occult overt GI bleed TECHNIQUE: 23.8 mCi of technetium 99 M ultra tag was injected intravenously followed by immediate scanning of the abdomen for a total of 80 minutes. COMPARISON STUDY: None. FINDINGS: No abnormal radiotracer identified within the expected location of the bowel. IMPRESSION: No evidence for active GI bleed. Electronically signed by: Awais Roberts M.D. 08/23/2016 3:54 PM Dictated Date/Time: 08/23/2016 3:53 PM
[2016-08-23] MEDS ORDERED: MIDAZOLAM HCL 1 MG/ML 2ML VIAL ONE (16:16)
[2016-08-23] MEDS ORDERED: PROPOFOL IV EMULSION 10 MG/ML 20 ML VIAL IV ONE (16:43)
[2016-08-23] MEDS ORDERED: ONDANSETRON INJ 2 MG/ML 2 ML VIAL ONE (16:43)
[2016-08-23] MEDS ORDERED: LIDOCAINE HCL 2% 2 ML VIAL (20MG/ML) ONE (16:43)
[2016-08-23 17:37] LABS: HEMATOCRIT 25.5 % (37-47)
--- NOTE | 2016-08-23 17:57 | Anesthesiology Progress Note ---
Anesthesia Post Op Note Date & Time Aug 23, 2016 at 17:56 Vital Signs Pain Intensity: 0 Vital Signs Past 12 Hours Date Time Temp Pulse Resp B/P Pulse Ox O2 Delivery O2 Flow Rate FiO2 08/23/16 17:23 36.7 73 22 133/72 100 Room Air 08/23/16 17:12 36.6 80 16 128/61 100 Room Air 08/23/16 17:04 36.7 75 18 122/65 100 Nasal Cannula 2 08/23/16 16:55 36.7 77 18 127/71 100 Nasal Cannula 2 08/23/16 16:00 Room Air 08/23/16 12:00 36.5 93 16 108/49 99 08/23/16 12:00 Room Air 08/23/16 10:00 36.5 85 16 112/77 99 08/23/16 08:00 Room Air 08/23/16 08:00 36.5 92 16 125/77 99 08/23/16 06:00 36.7 80 12 125/81 97 Room Air Notes Mental Status: alert / awake / arousable, participated in evaluation Pt Amnestic to Procedure: Yes Nausea / Vomiting: adequately controlled Pain: adequately controlled Airway Patency, RR, SpO2: stable & adequate BP & HR: stable & adequate Hydration State: stable & adequate Anesthetic Complications: no major complications apparent
[2016-08-23] MEDS: LORAZEPAM 2 MG/ML 1 ML VIAL IV PRN (22:05)
[2016-08-23 22:53] LABS: HEMATOCRIT 23.1 % (37-47)
[2016-08-24] VITALS (9 sets, daily range): BP systolic 116–134; BP diastolic 53–79; PULSE 73–92; TEMP 36.6–36.8; O2SAT 95–100
[2016-08-24] MEDS: PANTOprazole INJ 40 MG in DEXTROSE 5% 100ML IV SCH ×3 (00:01→08:16)
[2016-08-24 04:20] LABS: HEMATOCRIT 22.7 % (37-47); MEAN CELL VOLUME 100.9 fL (80-100); MEAN CORPUSCULAR HGB CONC 35.7 g/dl (32-36); MEAN PLATELET VOLUME 9.2 fL (7.4-10.4); PLATELET COUNT 247 K/uL (130-400); RED BLOOD COUNT 2.25 M/uL (4.2-5.4); WHITE BLOOD COUNT 8.74 K/uL (4.8-10.8)
[2016-08-24 04:48] LABS: ALB/GLOB RATIO 1.2 (0.9-2); BUN/CREATININE RATIO 13.2 (10-20); CALCIUM 8.1 mg/dl (8.5-10.1); CREATININE 0.65 mg/dl (0.60-1.20); POTASSIUM 3.4 mmol/L (3.5-5.1)
[2016-08-24] MEDS: SODIUM CHLORIDE 0.45% 1000ML 1,000 ML IV SCH (05:12)
--- NOTE | 2016-08-24 07:51 | Critical Care Progress Note ---
Critical Care Progress Note Date of Service Aug 24, 2016. ICU Day ICU Day Number: [address] Mendoza Subjective No complaints, no stool since yesterday. No dyspnea, no chest pain Objective GENERAL: She is awake and alert and in no distress. LUNGS: Clear to auscultation bilaterally. No rales, rhonchi or wheezes. HEART: Regular rate and rhythm. ABDOMEN: Soft, nondistended, and nontender. EXTREMITIES: Warm. No edema. NEUROLOGIC: She is able to move about the bed without any problems Assessment & Plan IMPRESSION: 1. Acute gastrointestinal bleed, status post upper endoscopy without determination of etiology. 2. Acute anemia of blood loss. 3. Alcohol abuse and at risk for alcohol withdrawal. 4. Leukocytosis, improved. 5. Macrocytosis, B12 and folate are within normal limits. 6. Mildly elevated total bilirubin, resolved. 7. Prolonged QT interval. I see the EKG that ordered yesterday has been canceled. I will reorder it. 8. History of seizures. 9. History of tobacco use. PLAN: NEUROLOGIC: Continue to watch for signs and symptoms of alcohol withdrawal. Treat with as needed Ativan. PULMONARY: Encouraged smoking cessation. CARDIOVASCULAR: Tachycardia has resolved. HEMATOLOGY: Continue serial blood counts and transfuse as needed. SCDs for DVT prophylaxis. RENAL: Assess volume status and replete phosphorus. GASTROINTESTINAL: Dr. Foster has ordered a bleeding scan, which is negative for acute bleeding. Started on clear diet Stable for downgraded to [facility] floor.. Consults & Procedures Consultants: Kristin: Gastroenterology Procedures: EGD 2 Data Medications: Current Inpatient Medications Medications (Trade) Dose Ordered Sig/Miko Route Start Time Stop Time Status Last Admin Dose Admin Lorazepam (Ativan Inj) 1 mg ONE PRN IV 08/22/16 10:45 Acetaminophen (Tylenol Tab) 650 mg Q4H PRN PO 08/22/16 10:45 09/21/16 10:44 Al Hydrox/Mg Hydrox/Simethicone (Maalox Max Susp) 15 ml Q4H PRN PO 08/22/16 10:45 09/21/16 10:44 Magnesium Hydroxide (Milk Of Magnesia Susp) 30 ml Q12H PRN PO 08/22/16 10:45 09/21/16 10:44 Ondansetron HCl (Zofran Inj) 4 mg Q6H PRN IV 08/22/16 10:45 09/21/16 10:44 08/22/16 19:49 4 MG Nitroglycerin (Nitrostat Tab) 0.4 mg UD PRN SL 08/22/16 10:45 09/21/16 10:44 Polyethylene (Miralax Powder Packet) 17 gm DAILY PRN PO 08/22/16 10:45 09/21/16 10:44 Multivitamins/ Minerals (Multivitamin W/ Minerals Tab) 1 tab DAILY PO 08/23/16 09:00 09/22/16 08:59 08/23/16 08:10 1 TAB Lorazepam 1 mg 1 mg Q4HWA PRN IV 08/22/16 10:45 09/21/16 10:44 08/23/16 22:05 1 MG Pantoprazole Sodium/Dextrose (Protonix Inj/D5 100ml) 100 ml @ 20 mls/hr Q5H IV 08/22/16 15:15 09/21/16 15:14 08/24/16 05:11 20 MLS/HR Thiamine HCl (Vitamin B-1 Tab) 100 mg QAM PO 08/23/16 09:00 09/22/16 08:59 08/23/16 08:11 100 MG Folic Acid (Folvite Tab) 1 mg QAM PO 08/23/16 09:00 09/22/16 08:59 08/23/16 08:10 1 MG Diphenhydramine HCl 50 mg 50 mg HS PRN PO 08/22/16 17:00 09/21/16 16:59 Sodium Chloride (1/2 Nss 1000ml) 1,000 ml @ 100 mls/hr Q10H IV 08/23/16 07:30 09/22/16 07:29 08/24/16 05:12 100 MLS/HR I & O: 24-Hour Column 08/24/16 08:00 Intake Total 3311 ml Output Total 2700 ml Balance 611 ml Vital Signs: Date Time Temp Pulse Resp B/P Pulse Ox O2 Delivery O2 Flow Rate FiO2 08/24/16 06:00 73 14 134/64 97 08/24/16 04:00 Room Air 08/24/16 04:00 36.7 75 19 118/69 97 Room Air 08/24/16 02:00 83 14 97 08/24/16 00:00 Room Air 08/24/16 00:00 36.6 73 18 116/53 96 Room Air 08/23/16 22:00 78 16 123/54 97 08/23/16 20:00 36.5 92 16 108/59 99 08/23/16 19:58 Room Air 08/23/16 18:00 36.5 90 16 143/61 99 08/23/16 17:23 36.7 73 22 133/72 100 Room Air 08/23/16 17:12 36.6 80 16 128/61 100 Room Air 08/23/16 17:04 36.7 75 18 122/65 100 Nasal Cannula 2 08/23/16 16:55 36.7 77 18 127/71 100 Nasal Cannula 2 08/23/16 16:00 Room Air 08/23/16 12:00 36.5 93 16 108/49 99 08/23/16 12:00 Room Air 08/23/16 10:00 36.5 85 16 112/77 99 08/23/16 08:00 Room Air 08/23/16 08:00 36.5 92 16 125/77 99 Laboratory Results: Last 24 Hours Test 08/23/16 11:05 08/23/16 17:26 08/23/16 22:05 08/24/16 04:15 Hemoglobin 8.9 g/dL 8.9 g/dL 8.2 g/dL 8.1 g/dL Hematocrit 26.2 % 25.5 % 23.1 % 22.7 % White Blood Count 8.74 K/uL Red Blood Count 2.25 M/uL Mean Corpuscular Volume 100.9 fL Mean Corpuscular Hemoglobin 36.0 pg Mean Corpuscular Hemoglobin Concent 35.7 g/dl RDW Standard Deviation 48.2 fL RDW Coefficient of Variation 13.2 % Platelet Count 247 K/uL Mean Platelet Volume 9.2 fL Sodium Level 140 mmol/L Potassium Level 3.4 mmol/L Chloride Level 105 mmol/L Carbon Dioxide Level 27 mmol/L Anion Gap 8.0 mmol/L Blood Urea Nitrogen 9 mg/dl Creatinine 0.65 mg/dl Est Creatinine Clear Calc Drug Dose 83.9 ml/min Estimated GFR () 112.6 Estimated GFR (Non- 97.2 BUN/Creatinine Ratio 13.2 Random Glucose 95 mg/dl Calcium Level 8.1 mg/dl Total Bilirubin 0.7 mg/dl Aspartate Amino Transf (AST/SGOT) 29 U/L Alanine Aminotransferase (ALT/SGPT) 26 U/L Alkaline Phosphatase 59 U/L Total Protein 5.7 gm/dl Albumin 3.1 gm/dl Globulin 2.6 gm/dl Albumin/Globulin Ratio 1.2
[2016-08-24] MEDS: CEROVITE ADV FORMULA TAB PO SCH (08:15)
[2016-08-24] MEDS: THIAMINE HCL 100 MG TAB PO SCH (08:15)
[2016-08-24] MEDS ORDERED: LORAZEPAM 2 MG/ML 1 ML VIAL IV PRN (08:45)
[2016-08-24] MEDS ORDERED: LORAZEPAM 0.5 MG TAB PO PRN (08:45)
[2016-08-24] MEDS: PANTOprazole SOD 40 MG TAB PO SCH ×2 (09:28→19:51)
[2016-08-24 10:40] LABS: HEMATOCRIT 25.2 % (37-47)
--- NOTE | 2016-08-24 16:15 | Gastroenterology Progress Note ---
Progress Note Date of Service: Aug 24, 2016 Subjective Pt evaluation today including: conversation w/ patient, physical exam, chart review, lab review, review of studies, review of inpatient medication list Pt reported a bout of dark stools this AM. Denies any n/v, abd pain, CP, SOB. GI bleeding scan yesterday negative. Review of Systems Constitutional: + weakness, No chills, No fever Respiratory: No cough, No shortness of breath Cardiac: No chest pain, No edema Abdomen: + GI bleeding, + see HPI, No nausea, No pain, No vomiting Medications Current Inpatient Medications Medications (Trade) Dose Ordered Sig/Miko Route Start Time Stop Time Status Last Admin Dose Admin Acetaminophen (Tylenol Tab) 650 mg Q4H PRN PO 08/22/16 10:45 09/21/16 10:44 Al Hydrox/Mg Hydrox/Simethicone (Maalox Max Susp) 15 ml Q4H PRN PO 08/22/16 10:45 09/21/16 10:44 Magnesium Hydroxide (Milk Of Magnesia Susp) 30 ml Q12H PRN PO 08/22/16 10:45 09/21/16 10:44 Ondansetron HCl (Zofran Inj) 4 mg Q6H PRN IV 08/22/16 10:45 09/21/16 10:44 08/22/16 19:49 4 MG Nitroglycerin (Nitrostat Tab) 0.4 mg UD PRN SL 08/22/16 10:45 09/21/16 10:44 Polyethylene (Miralax Powder Packet) 17 gm DAILY PRN PO 08/22/16 10:45 09/21/16 10:44 Multivitamins/ Minerals (Multivitamin W/ Minerals Tab) 1 tab DAILY PO 08/23/16 09:00 09/22/16 08:59 08/24/16 08:15 1 TAB Thiamine HCl (Vitamin B-1 Tab) 100 mg QAM PO 08/23/16 09:00 09/22/16 08:59 08/24/16 08:15 100 MG Folic Acid (Folvite Tab) 1 mg QAM PO 08/23/16 09:00 09/22/16 08:59 08/24/16 08:15 1 MG Diphenhydramine HCl (Benadryl Cap) 50 mg HS PRN PO 08/22/16 17:00 09/21/16 16:59 Pantoprazole Sodium (Protonix Tab) 40 mg BID PO 08/24/16 08:57 09/23/16 08:59 08/24/16 09:28 40 MG Lorazepam (Ativan Inj) Per Protocol Per Protocol PRN IV 08/24/16 08:45 09/23/16 08:44 Lorazepam (Ativan Tab) 0.5 mg Per Protocol PRN PO 08/24/16 08:45 09/23/16 08:44 Objective Vital Signs Date Time Temp Pulse Resp B/P Pulse Ox O2 Delivery O2 Flow Rate FiO2 08/24/16 15:52 Room Air 08/24/16 15:41 36.8 83 18 116/68 99 Room Air 08/24/16 10:00 Room Air 08/24/16 09:10 36.6 92 18 124/79 100 08/24/16 08:50 36.7 82 18 100 08/24/16 08:00 36.7 82 18 119/65 100 Room Air 08/24/16 08:00 Room Air 08/24/16 08:00 Room Air 08/24/16 06:00 73 14 134/64 97 08/24/16 04:00 Room Air 08/24/16 04:00 36.7 75 19 118/69 97 Room Air 08/24/16 02:00 83 14 97 08/24/16 00:00 Room Air 08/24/16 00:00 36.6 73 18 116/53 96 Room Air 08/23/16 22:00 78 16 123/54 97 08/23/16 20:00 36.5 92 16 108/59 99 08/23/16 19:58 Room Air 08/23/16 18:00 36.5 90 16 143/61 99 08/23/16 17:23 36.7 73 22 133/72 100 Room Air 08/23/16 17:12 36.6 80 16 128/61 100 Room Air 08/23/16 17:04 36.7 75 18 122/65 100 Nasal Cannula 2 08/23/16 16:55 36.7 77 18 127/71 100 Nasal Cannula 2 Physical Exam General Appearance: WD/WN, no apparent distress Eyes: normal inspection, PERRL, EOMI Neck: supple, no JVD, trachea midline Respiratory/Chest: normal breath sounds, no respiratory distress, no accessory muscle use Cardiovascular: regular rate, rhythm, no gallop, no murmur Abdomen: normal bowel sounds, non tender, soft Extremities: normal inspection, no pedal edema, no calf tenderness Neurologic/Psych: alert, normal mood/affect, oriented x 3 Skin: normal color, no jaundice, no rash Laboratory Results Last 24 Hours Test 08/23/16 17:26 08/23/16 22:05 08/24/16 04:15 08/24/16 10:11 Hemoglobin 8.9 g/dL 8.2 g/dL 8.1 g/dL 8.8 g/dL Hematocrit 25.5 % 23.1 % 22.7 % 25.2 % White Blood Count 8.74 K/uL Red Blood Count 2.25 M/uL Mean Corpuscular Volume 100.9 fL Mean Corpuscular Hemoglobin 36.0 pg Mean Corpuscular Hemoglobin Concent 35.7 g/dl RDW Standard Deviation 48.2 fL RDW Coefficient of Variation 13.2 % Platelet Count 247 K/uL Mean Platelet Volume 9.2 fL Sodium Level 140 mmol/L Potassium Level 3.4 mmol/L Chloride Level 105 mmol/L Carbon Dioxide Level 27 mmol/L Anion Gap 8.0 mmol/L Blood Urea Nitrogen 9 mg/dl Creatinine 0.65 mg/dl Est Creatinine Clear Calc Drug Dose 83.9 ml/min Estimated GFR () 112.6 Estimated GFR (Non- 97.2 BUN/Creatinine Ratio 13.2 Random Glucose 95 mg/dl Calcium Level 8.1 mg/dl Total Bilirubin 0.7 mg/dl Aspartate Amino Transf (AST/SGOT) 29 U/L Alanine Aminotransferase (ALT/SGPT) 26 U/L Alkaline Phosphatase 59 U/L Total Protein 5.7 gm/dl Albumin 3.1 gm/dl Globulin 2.6 gm/dl Albumin/Globulin Ratio 1.2 Test 08/24/16 16:00 Assessment and Plan Pt is a 60 y/o female w hx of ETOH abuse, NSAIDs use, tobacco abuse who is seen for melena. Had EGD on 08/22 and 08/23 w/o overt sign of UGI bleeding though had a red spot on stomach that was clipped. She continues to have dark santa stools, GI bleeding scan yesterday negative. Today states had another dark stools but overall appears less bloody. Hgb stable at 8 for last few draws. She is tolerating CL diet well. - Advanced to [place] diet; may advance further to regular diet if tolerate this well - Monitor H/H and transfuse prn - Would recommend eventual colonoscopy evaluation but this can be done in outpt setting. Pt never had a colonoscopy before. I performed a history and physical examination of the patient. I have discussed the patient's case, impression and plan with BRANDY La on . Her note reflects my findings and plan. No signs of further bleeding. Advance diet and consider d/c home tomorrow is she remains stable. Mil Espinoza MD
[2016-08-24 16:19] LABS: HEMATOCRIT 22.9 % (37-47)
--- NOTE | 2016-08-24 18:54 | Hospitalist Progress Note ---
Hospitalist Progress Note Date of Service Aug 24, 2016. Subjective Pt evaluation today including: conversation w/ patient, physical exam, chart review No further abd pain. EGD results noted. Medications Medications (Trade) Dose Ordered Sig/Miko Route Start Time Stop Time Status Last Admin Dose Admin Pantoprazole Sodium (Protonix Tab) 40 mg BID PO 08/24/16 08:57 09/23/16 08:59 08/24/16 09:28 40 MG Objective Vital Signs Date Time Temp Pulse Resp B/P Pulse Ox O2 Delivery O2 Flow Rate FiO2 08/24/16 15:52 Room Air 08/24/16 15:41 36.8 83 18 116/68 99 Room Air 08/24/16 10:00 Room Air 08/24/16 09:10 36.6 92 18 124/79 100 08/24/16 08:50 36.7 82 18 100 08/24/16 08:00 36.7 82 18 119/65 100 Room Air 08/24/16 08:00 Room Air 08/24/16 08:00 Room Air 08/24/16 06:00 73 14 134/64 97 08/24/16 04:00 Room Air 08/24/16 04:00 36.7 75 19 118/69 97 Room Air 08/24/16 02:00 83 14 97 08/24/16 00:00 Room Air 08/24/16 00:00 36.6 73 18 116/53 96 Room Air 08/23/16 22:00 78 16 123/54 97 08/23/16 20:00 36.5 92 16 108/59 99 08/23/16 19:58 Room Air Physical Exam General Appearance: WD/WN ENT: normal ENT inspection Neck: supple, no adenopathy, no JVD Respiratory/Chest: chest non-tender, lungs clear Cardiovascular: regular rate, rhythm, no edema, no gallop, no murmur Abdomen: normal bowel sounds, non tender, soft Extremities: normal range of motion, non-tender Neurologic/Psychiatric: label cutter II-XII nml as tested, alert, oriented x 3 Laboratory Results Last 24 Hours Test 08/23/16 22:05 08/24/16 04:15 08/24/16 10:11 08/24/16 15:55 Hemoglobin 8.2 g/dL 8.1 g/dL 8.8 g/dL 8.0 g/dL Hematocrit 23.1 % 22.7 % 25.2 % 22.9 % White Blood Count 8.74 K/uL Red Blood Count 2.25 M/uL Mean Corpuscular Volume 100.9 fL Mean Corpuscular Hemoglobin 36.0 pg Mean Corpuscular Hemoglobin Concent 35.7 g/dl RDW Standard Deviation 48.2 fL RDW Coefficient of Variation 13.2 % Platelet Count 247 K/uL Mean Platelet Volume 9.2 fL Sodium Level 140 mmol/L Potassium Level 3.4 mmol/L Chloride Level 105 mmol/L Carbon Dioxide Level 27 mmol/L Anion Gap 8.0 mmol/L Blood Urea Nitrogen 9 mg/dl Creatinine 0.65 mg/dl Est Creatinine Clear Calc Drug Dose 83.9 ml/min Estimated GFR () 112.6 Estimated GFR (Non- 97.2 BUN/Creatinine Ratio 13.2 Random Glucose 95 mg/dl Calcium Level 8.1 mg/dl Total Bilirubin 0.7 mg/dl Aspartate Amino Transf (AST/SGOT) 29 U/L Alanine Aminotransferase (ALT/SGPT) 26 U/L Alkaline Phosphatase 59 U/L Total Protein 5.7 gm/dl Albumin 3.1 gm/dl Globulin 2.6 gm/dl Albumin/Globulin Ratio 1.2 Test 08/24/16 16:12 Bedside Glucose 84 mg/dl Assessment and Plan 60 F with acute blood loss anemia, with emergent endoscopy without upper gi source but blood in stomach, did drop hgb 4 gms overnight, Gi medicine has continued ppi, scheduled bleeding scan shows no evidence of bleeding. GI bleed, continue to monitor h/h, transfuse as needed, continue ppi, most recent hgb stable alcohol abuse, concerns for withdrawal, ativan, vitamins, Cessation counselling offered and refused
[2016-08-25 06:42] LABS: HEMATOCRIT 22.8 % (37-47); MEAN CELL VOLUME 101.3 fL (80-100); MEAN CORPUSCULAR HGB CONC 35.5 g/dl (32-36); MEAN PLATELET VOLUME 9.5 fL (7.4-10.4); PLATELET COUNT 264 K/uL (130-400); RED BLOOD COUNT 2.25 M/uL (4.2-5.4); WHITE BLOOD COUNT 8.01 K/uL (4.8-10.8)
[2016-08-25 07:13] LABS: BUN/CREATININE RATIO 8.4 (10-20); CALCIUM 8.4 mg/dl (8.5-10.1); CREATININE 0.71 mg/dl (0.60-1.20); POTASSIUM 2.9 mmol/L (3.5-5.1)
[2016-08-25 07:18] VITALS: BP 132/75; PULSE 77; TEMP 36.8; O2SAT 99
[2016-08-25] MEDS: PANTOprazole SOD 40 MG TAB PO SCH ×2 (08:23→20:27)
[2016-08-25] MEDS: THIAMINE HCL 100 MG TAB PO SCH (08:23)
[2016-08-25] MEDS: CEROVITE ADV FORMULA TAB PO SCH (08:23)
[2016-08-25] MEDS ORDERED: POTASSIUM CHLORIDE 10 MEQ TABCR PO STA (10:39)
[2016-08-25 14:39] VITALS: BP 116/75; PULSE 79; TEMP 36.8; O2SAT 99
--- NOTE | 2016-08-25 18:11 | Discharge Instructions ---
Discharge Instructions Date of Service Aug 25, 2016. Admission Reason for Admission: Gi, Gastrointestinal Hemorrhage Discharge Discharge Diagnosis / Problem: GI bleed Discharge Goals Goal(s): Improve function Activity Recommendations Activity Limitations: resume your previous activity Lifting Limitations: gradually increase as tolerated Exercise/Sports Limitations: until after follow-up appointment May Resume Sexual Activity: when tolerated Shower/Bathe: no limitations Driving or Machine Use: no limitations . Instructions / Follow-Up Instructions / Follow-Up GI in one to two weeks Current Hospital Diet Patient's current hospital diet: Regular Diet Discharge Diet Recommended Diet: AHA Diet (Heart Healthy) Procedures Procedures Performed: Esophagogastroduodenoscopy Pending Studies Studies pending at discharge: yes List of pending studies: Colonoscopy Laboratory Results 08/25/16 06:25 08/25/16 06:25 Test 08/22/16 09:51 08/22/16 10:31 08/22/16 11:02 08/22/16 16:12 Immature Granulocyte % (Auto) 0.3 % White Blood Count 13.43 K/uL (4.8-10.8) Red Blood Count 3.35 M/uL (4.2-5.4) Hemoglobin 12.1 g/dL (12.0-16.0) Hematocrit 33.6 % (37-47) Mean Corpuscular Volume 100.3 fL (80-100) Mean Corpuscular Hemoglobin 36.1 pg (25-34) Mean Corpuscular Hemoglobin Concent 36.0 g/dl (32-36) Platelet Count 342 K/uL (130-400) Mean Platelet Volume 9.7 fL (7.4-10.4) Neutrophils (%) (Auto) 76.5 % Lymphocytes (%) (Auto) 14.1 % Monocytes (%) (Auto) 8.1 % Eosinophils (%) (Auto) 0.4 % Basophils (%) (Auto) 0.6 % Neutrophils # (Auto) 10.26 K/uL (1.4-6.5) Lymphocytes # (Auto) 1.90 K/uL (1.2-3.4) Monocytes # (Auto) 1.09 K/uL (0.11-0.59) Eosinophils # (Auto) 0.06 K/uL (0-0.5) Basophils # (Auto) 0.08 K/uL (0-0.2) Immature Granulocyte # (Auto) 0.04 K/uL (0.00-0.02) Prothrombin Time 10.4 SECONDS (9.0-12.0) Prothromb Time International Ratio 1.0 (0.9-1.1) Activated Partial Thromboplast Time 22.1 SECONDS (21.0-31.0) Partial Thromboplastin Ratio 0.9 Direct Bilirubin 0.3 mg/dl (0-0.2) Lipase 134 U/L (73-393) Creatine Kinase MB Ratio (0-3.0) Ethyl Alcohol mg/dL < 3.0 mg/dl (0-3) Vitamin B12 Level 376 pg/mL (211-911) Folate > 24.00 ng/mL (>5.38) Test 08/22/16 21:59 08/23/16 05:09 08/25/16 06:25 08/25/16 16:11 Troponin I < 0.015 ng/ml (0-0.045) Phosphorus Level 2.2 mg/dl (2.5-4.9) Magnesium Level 2.0 mg/dl (1.8-2.4) Red Blood Count 2.25 M/uL (4.2-5.4) Mean Corpuscular Volume 101.3 fL (80-100) Mean Corpuscular Hemoglobin 36.0 pg (25-34) Mean Corpuscular Hemoglobin Concent 35.5 g/dl (32-36) RDW Standard Deviation 49.8 fL (36.4-46.3) RDW Coefficient of Variation 13.5 % (11.5-14.5) Mean Platelet Volume 9.5 fL (7.4-10.4) Anion Gap 6.0 mmol/L (3-11) Est Creatinine Clear Calc Drug Dose 76.8 ml/min Estimated GFR () 108.1 Estimated GFR (Non- 93.2 BUN/Creatinine Ratio 8.4 (10-20) Calcium Level 8.4 mg/dl (8.5-10.1) Total Bilirubin 0.5 mg/dl (0.2-1) Aspartate Amino Transf (AST/SGOT) 21 U/L (15-37) Alanine Aminotransferase (ALT/SGPT) 26 U/L (12-78) Alkaline Phosphatase 63 U/L (45-117) Total Protein 5.7 gm/dl (6.4-8.2) Albumin 2.9 gm/dl (3.4-5.0) Globulin 2.8 gm/dl (2.5-4.0) Albumin/Globulin Ratio 1.0 (0.9-2) Bedside Glucose 105 mg/dl (70-90) Date/Time Source Procedure Growth Status 08/22/16 00:00 Nasal MRSA DNA Surveillance Screen - Final Specimen Negative for MRSA by DNA Probe Complete Medical Emergencies . Who to Call and When: Medical Emergencies: If at any time you feel your situation is an emergency, please call 911 immediately. . Non-Emergent Contact Non-Emergency issues call your: Primary Care Provider . 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 "Provider Documentation" section prepared by Cristina Ibanez. . VTE Core Measure Inpt VTE Proph given/why not?: TLillian Stockings, SCD's
--- NOTE | 2016-08-25 18:32 | Discharge Summary ---
Discharge Summary Date of Service Aug 25, 2016. Discharge Summary Admission Date: Aug 22, 2016 at 10:54 Discharge Date: Aug 25, 2016 Discharge Disposition: Home Principal Diagnosis: GI bleed Problems/Secondary Diagnoses: Alcoholism Consultations: GI Medication Reconciliation Continued Medications: Calcium Carbonate-Vitamin D (Calcium) 1 Tab Tab 1 TAB PO DAILY Multivitamin (Multivitamin) Tab 1 TAB PO DAILY, TAB Ocuvite Preservision (Ocuvite Preservision) 1 Tab Tab 1 TAB PO DAILY, TAB Discharge Exam Physical Exam: General Appearance: WD/WN Eyes: normal inspection ENT: normal ENT inspection Neck: supple Respiratory/Chest: chest non-tender, lungs clear Cardiovascular: regular rate, rhythm, no edema Abdomen / GI: normal bowel sounds, non tender, soft Extremities: normal inspection Neurologic/Psychiatric: operations analyst II-XII nml as tested, alert, oriented x 3 Skin: normal color, + pallor Hospital Course 60 F with acute blood loss anemia, with emergent endoscopy without upper gi source but blood in stomach, did drop hgb 4 gms overnight, Gi medicine has continued ppi, scheduled bleeding scan shows no evidence of bleeding. Colonoscopy as outpatient GI bleed, continue to monitor h/h, transfuse as needed, continue ppi, most recent hgb stable alcohol abuse, concerns for withdrawal, ativan, vitamins, Cessation counselling offered and refused Total Time Spent: Less than 30 minutes This includes examination of the patient, discharge planning, medication reconciliation, and communication with other providers. Discharge Instructions Please refer to the electronic Patient Visit Report (Discharge Instructions) for additional information. Follow-Up GI in one to two weeks.
[2016-08-26 07:19] VITALS: BP 128/81; PULSE 72; TEMP 36.6; O2SAT 96
[2016-08-26 08:30] VITALS: O2SAT 96
[2016-08-26] MEDS: THIAMINE HCL 100 MG TAB PO SCH (08:37)
[2016-08-26] MEDS: CEROVITE ADV FORMULA TAB PO SCH (08:37)
[2016-08-26] MEDS: PANTOprazole SOD 40 MG TAB PO SCH (08:37)
--- NOTE | 2016-08-26 10:13 | Hospitalist Progress Note ---
Hospitalist Progress Note Date of Service Aug 26, 2016. Subjective Pt evaluation today including: conversation w/ patient, chart review Doing well. Medications Medications (Trade) Dose Ordered Sig/Miko Route Start Time Stop Time Status Last Admin Dose Admin Potassium Chloride (Klor-Con M10) 20 meq NOW STAT PO 08/25/16 10:39 08/25/16 11:02 DC 08/25/16 12:46 20 MEQ Objective Vital Signs Date Time Temp Pulse Resp B/P Pulse Ox O2 Delivery O2 Flow Rate FiO2 08/26/16 08:30 96 Room Air 08/26/16 07:19 36.6 72 20 128/81 96 Room Air 08/25/16 23:30 Room Air 08/25/16 20:05 Room Air 08/25/16 14:39 36.8 79 18 116/75 99 Physical Exam ENT: normal ENT inspection Neck: supple Respiratory/Chest: chest non-tender Cardiovascular: regular rate, rhythm Abdomen: normal bowel sounds Neurologic/Psychiatric: alert, oriented x 3 Skin: + pallor Laboratory Results Last 24 Hours Test 08/25/16 11:14 08/25/16 16:11 08/25/16 20:00 08/26/16 08:01 Bedside Glucose 123 mg/dl 105 mg/dl 113 mg/dl 101 mg/dl Assessment and Plan 60 F with acute blood loss anemia, with emergent endoscopy without upper gi source but blood in stomach, did drop hgb 4 gms overnight, Gi medicine has continued ppi, scheduled bleeding scan shows no evidence of bleeding. Colonoscopy as outpatient GI bleed, most recent hgb stable. follow up with GI as OP alcohol abuse, concerns for withdrawal, ativan, vitamins, Cessation counselling offered and refused
[2016-08-26 11:13] VITALS: BP 128/81; PULSE 72; TEMP 36.6; O2SAT 96
== END 2016-08-26 11:30 | disposition home or self-care (01) | DRG 378 ==
LOC: ENRESERVDT → ENRESERVTM → EDBD 09:11 → EEVIPCON 09:12 → C.EDA 09:12 → C.MSICU 10:54 → C.4E 08-24 08:56
PROVIDERS: ADMIT Internal Medicine; ATTEND Internal Medicine
PROC: 0DJ08ZZ Inspection of Upper Intestinal Tract, Via Natural or Artificial Opening Endoscopic (ICD-10-PCS; principal; 2016-08-22 12:30)
PROC: 0W3P8ZZ Control Bleeding in Gastrointestinal Tract, Via Natural or Artificial Opening Endoscopic (ICD-10-PCS; 2016-08-23)
DX: K92.2 Gastrointestinal hemorrhage, unspecified (principal); D62 Acute posthemorrhagic anemia; F10.239 Alcohol dependence with withdrawal, unspecified; K92.1 Melena; D53.1 Other megaloblastic anemias, not elsewhere classified; E87.6 Hypokalemia; D75.89 Other specified diseases of blood and blood-forming organs; I45.81 Long QT syndrome; E83.42 Hypomagnesemia; F17.210 Nicotine dependence, cigarettes, uncomplicated; Z79.899 Other long term (current) drug therapy; Z79.1 Long term (current) use of non-steroidal anti-inflammatories (NSAID); Z87.898 Personal history of other specified conditions; Z84.89 Family history of other specified conditions; Z82.49 Family history of ischemic heart disease and other diseases of the circulatory system; Z82.69 Family history of other diseases of the musculoskeletal system and connective tissue